=== PATIENT | female | born 1980 | race Caucasian/White ===

== ENCOUNTER 2018-01-07 07:22 | Outpatient (CLI) | payer OTHER ==
[2018-01-07] MEDS ORDERED: Iopamidol 370 76% 100 ML VIAL ONE (09:00)
--- NOTE | 2018-01-07 09:06 | CT ---
CT ABDOMEN AND PELVIS WITH IV CONTRAST: INDICATIONS: Left lower quadrant abdominal pain since 2007 that has increased to where the patient is having persi stent pain all the time. The patient has a history of surgical ablation. COMPARISON: None. CONTRAST: Isovue-370 100 mL. FINDINGS: Calcified granuloma in the left lower lobe. There is a 1.8 cm aneurysm involving the splenic artery on image 18 of series 2. The spleen measures 10.7 cm. There is a tiny hepatic hypodensity within the medial left hepatic lobe, suspicious for a small cyst. The pancreas, adrenal glands, and kidneys appear within normal limits. There is a fibroid uterus. The bladder, rectum, and perirectal soft tissues are unremarkable appeari ng. There is a suspected 1.6 cm involuting cyst within the left adnexa. There is a mild amount of retained stool within the colon. There is a normal appendix in the right l ower quadrant of the abdomen. No acute osseous abnormality is evident. IMPRESSION: 1. 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 Would recommend a nonemergent vascular surgery consultation. 2. Fibroid uterus. 3. Mild amount of retained stool. 4. Left hepatic lobe cyst. 5. Suspected involuting cyst within the left adnexa. POS: [facility]
== END 2018-01-07 07:23 | disposition home or self-care (01) ==
LOC: SCSCT 07:22
PROVIDERS: ATTEND Internal Medicine
DX: K58.1 Irritable bowel syndrome with constipation (principal); D25.9 Leiomyoma of uterus, unspecified; K76.89 Other specified diseases of liver; I72.8 Aneurysm of other specified arteries
CPT/HCPCS: 74177

== ENCOUNTER 2018-01-19 17:17 | Outpatient (CLI) | payer OTHER ==
[2018-01-19 18:09] LABS: Hemoglobin 13.9 g/dL (12.0-16.0); Mean Corpuscular HGB CONC 33.1 g/dL (32.0-36.0); Mean Corpuscular Hemoglobin 30.7 pg (27.0-31.0); Mean Corpuscular Volume 92.8 fl (81.0-99.0); Mean Platelet Volume 7.8 fL (7.4-10.4); Platelet Count 387 thou/uL (130-400); RBC Distribution Width 11.1 % (11.5-14.5); Red Blood Cell (RBC) Count 4.53 mill/uL (4.20-5.40); White Blood Cell (WBC) Count 8.3 thou/uL (4.8-10.8)
[2018-01-19 18:29] LABS: Anion Gap 6 mmol/L (10-20); BUN (Urea Nitrogen) 13 mg/dL (7.0-18.7); Calc. Creatinine Clearance 0 mL/min (70-130); Calcium 9.6 mg/dL (7.8-10.44); Carbon Dioxide 31 mmol/L (22-29); Chloride 102 mmol/L (98-107); Estimated GFR-MDRD 83; Glucose 87 mg/dL (70-105); Potassium 3.1 mmol/L (3.5-5.1); Sodium 136 mmol/L (136-145)
== END 2018-01-19 17:18 | disposition home or self-care (01) ==
LOC: LABBT 17:17
PROVIDERS: ATTEND Thoracic Surgery (Cardiothoracic Vascular Surgery)
DX: Z01.812 Encounter for preprocedural laboratory examination (principal); I72.8 Aneurysm of other specified arteries
CPT/HCPCS: 80048; 85027

== ENCOUNTER 2018-01-20 08:52 | Day surgery (SDC) | payer OTHER ==
[2018-01-19 17:29] VITALS: BMI 22.8
[2018-01-20] MEDS ORDERED: Iopamidol 370 76% 50 ML VIAL FS ONE (10:26)
[2018-01-20] MEDS ORDERED: Lidocaine 1% (PF) 30 ML VIAL ONE (10:36)
[2018-01-20] MEDS ORDERED: Fentanyl 100 MCG/2 ML VIAL ONE ×2 (10:49→12:47)
[2018-01-20] MEDS ORDERED: Midazolam HCl 2 mg/2 ml Vial ONE (10:49)
[2018-01-20] MEDS ORDERED: Heparin 10,000 UNITS/1 ML VIAL ONE (12:23)
--- NOTE | 2018-01-20 13:03 | OP ---
DATE OF PROCEDURE: 01/20/2018 PREOPERATIVE DIAGNOSIS: Splenic artery aneurysm. POSTOPERATIVE DIAGNOSIS: Splenic artery aneurysm. PROCEDURES: 1. Abdominal aortogram. 2. Celiac artery angiogram. 3. Splenic artery angiogram. 4. US guided vascular access SURGEON: Rayo Paez M.D. ANESTHESIA: 1% lidocaine for local and 2 mg Versed/100 mcg fentanyl for IV sedation. TOTAL CONTRAST: 41 mL. TOTAL FLUOROSCOPY TIME: 29.5 minutes. PROCEDURE IN DETAIL: After consent was obtained, the patient was brought to the [employer] Integration Specialist, placed in supine position on the laboratory associate table. Appropriate anesthetic monitoring was placed. IV sedation was begun. Groins were prepped and draped in usual sterile fashion. Using ultrasound guidance, right femoral artery was accessed and a micropuncture sheath placed. This was exchanged for a 5-Mauritanian sheath. Abdominal aortogram was performed through a Contra catheter positioned in the abdominal aorta at the level of the diaphragm. The celiac artery was localized. A lateral projection was performed to localize the celiac artery and lateral projection. Multiple guidewires, guiding catheters, and catheters were used to access and image the celiac, splenic, and hepatic arteries. Again, multiple guidewires and catheters were used to attempt to access the splenic artery. Multiple angiograms and multiple views were performed with no success and actually isolating the splenic artery for guidewire and catheter placement. At this point, I elected to terminate the procedure. Guidwires and catheters were removed. Sheath was removed and manual pressure was held for hemostasis. She will be discharged later today and will be referred out for a splenic artery embolization. KONSTANTIN
[2018-01-20] MEDS ORDERED: Fentanyl 100 MCG/2 ML VIAL SLOW IVP PRN (13:54)
[2018-01-20] MEDS ORDERED: Ondansetron HCl/PF 4 MG/2 ML Vial ONE ×2 (15:34→15:51)
[2018-01-20] MEDS ORDERED: Lorazepam 2 MG/ML VIAL ONE (15:34)
[2018-01-20] MEDS ORDERED: Lorazepam 2 MG/ML VIAL SLOW IVP PRN (15:43)
[2018-01-20] MEDS ORDERED: Ondansetron HCl/PF 4 MG/2 ML Vial SLOW IVP PRN (15:44)
[2018-01-20] MEDS ORDERED: Sodium Chloride 0.9% 10 ML ONE (16:51)
== END 2018-01-20 18:16 | disposition home or self-care (01) ==
LOC: CCL 08:52
PROVIDERS: ATTEND Thoracic Surgery (Cardiothoracic Vascular Surgery)
PROC: B40DYZZ Plain Radiography of Aorta and Bilateral Lower Extremity Arteries using Other Contrast (ICD-10-PCS; principal; 2018-01-20)
DX: I72.8 Aneurysm of other specified arteries (principal); G43.909 Migraine, unspecified, not intractable, without status migrainosus; I10 Essential (primary) hypertension; I47.1 Supraventricular tachycardia; F41.9 Anxiety disorder, unspecified; I34.1 Nonrheumatic mitral (valve) prolapse; Z79.899 Other long term (current) drug therapy; Z88.8 Allergy status to other drugs, medicaments and biological substances
CPT/HCPCS: 36245; 75625; 75726; 76942; 96374; 99152; 99153; A4216; C1725; C1769; C1887; J1644; J2001; J2060; J2250; J2405; J3010

== ENCOUNTER 2018-01-24 16:28 | Emergency (ER) | payer OTHER ==
[2018-01-24 16:54] LABS: #Basophils 0.1 thou/uL (0.0-0.2); #Eosinphils 0.7 thou/uL (0.0-0.7); #Lymphocytes 1.5 thou/uL (1.20-3.40); #Monocytes 0.7 thou/uL (0.11-0.59); #Neutrophils 6.2 thou/uL (1.40-6.50); %Basophils 1.1 % (0.0-1.0); %Eosinophils 8.1 % (0.0-10.0); %Neutrophils 66.8 % (42.0-75.0); Hemoglobin 10.7 g/dL (12.0-16.0); Mean Corpuscular HGB CONC 34.4 g/dL (32.0-36.0); Mean Corpuscular Hemoglobin 29.7 pg (27.0-31.0); Mean Corpuscular Volume 86.3 fl (81.0-99.0); Platelet Count 312 thou/uL (130-400); RBC Distribution Width 10.8 % (11.5-14.5); White Blood Cell (WBC) Count 9.2 thou/uL (4.8-10.8)
[2018-01-24 17:08] LABS: ALT (SGPT) 12 U/L (8-55); AST (SGOT) 13 U/L (5-34); Albumin 3.9 g/dL (3.5-5.0); Alkaline Phosphatase 52 U/L (40-150); Anion Gap 11 mmol/L (10-20); BUN (Urea Nitrogen) 14 mg/dL (7.0-18.7); Bilirubin, Total 0.6 mg/dL (0.2-1.2); Calc. Creatinine Clearance 0 mL/min (70-130); Calcium 8.9 mg/dL (7.8-10.44); Carbon Dioxide 27 mmol/L (22-29); Chloride 105 mmol/L (98-107); Estimated GFR-MDRD Greater than 90; Globulin 2.8 g/dL (2.4-3.5); Glucose 85 mg/dL (70-105); Lipase 43 U/L (8-78); Potassium 3.7 mmol/L (3.5-5.1); Protein, Total 6.7 g/dL (6.0-8.3); Sodium 139 mmol/L (136-145)
--- NOTE | 2018-02-18 14:34 | EKG ---
Test Reason : Blood Pressure : / mmHG Vent. Rate : 081 BPM Atrial Rate : 081 BPM P-R Int : 148 ms QRS Dur : 122 ms QT Int : 424 ms P-R-T Axes : 046 040 020 degrees QTc Int : 492 ms Normal sinus rhythm RSR' or QR pattern in V1 suggests right ventricular conduction delay Cannot rule out Anterior infarct , age undetermined Nonspecific T wave abnormality Abnormal ECG Confirmed by TWYLA WATSON, FRIDA Goyal ([id number]), department editor MARIBEL CARPIO ([id number]) on 02/18/2018 2:34:03 PM Referred By: Confirmed By:FRIDA WAKEFIELD MD
== END 2018-01-24 18:38 | disposition home or self-care (01) ==
LOC: SCSER 16:28
DX: R53.1 Weakness (principal); G43.909 Migraine, unspecified, not intractable, without status migrainosus; F32.9 Major depressive disorder, single episode, unspecified; F41.9 Anxiety disorder, unspecified; Z79.899 Other long term (current) drug therapy
CPT/HCPCS: 80053; 83690; 85025; 93005; 96360

== ENCOUNTER 2018-01-25 19:58 | Observation (INO) | payer OTHER ==
[2018-01-25 20:51] LABS: #Eosinphils 0.3 thou/uL (0.0-0.7); #Lymphocytes 1.1 thou/uL (1.20-3.40); #Monocytes 0.2 thou/uL (0.11-0.59); %Basophils 0.3 % (0.0-1.0); %Eosinophils 4.4 % (0.0-10.0); %Lymphocytes 14.5 % (21.0-51.0); %Monocytes 3.1 % (0.0-10.0); %Neutrophils 77.7 % (42.0-75.0); Hemoglobin 11.2 g/dL (12.0-16.0); Mean Corpuscular HGB CONC 34.5 g/dL (32.0-36.0); Mean Corpuscular Hemoglobin 31.1 pg (27.0-31.0); Mean Corpuscular Volume 90.2 fl (81.0-99.0); Mean Platelet Volume 7.1 fL (7.4-10.4); Platelet Count 339 thou/uL (130-400); RBC Distribution Width 11.2 % (11.5-14.5); Red Blood Cell (RBC) Count 3.61 mill/uL (4.20-5.40); White Blood Cell (WBC) Count 7.7 thou/uL (4.8-10.8)
[2018-01-25 21:10] LABS: Anion Gap 10 mmol/L (10-20); BUN (Urea Nitrogen) 8 mg/dL (7.0-18.7); Calc. Creatinine Clearance 0 mL/min (70-130); Calcium 9.2 mg/dL (7.8-10.44); Carbon Dioxide 25 mmol/L (22-29); Chloride 104 mmol/L (98-107); Estimated GFR-MDRD 90; Glucose 88 mg/dL (70-105); Potassium 3.4 mmol/L (3.5-5.1); Sodium 136 mmol/L (136-145)
[2018-01-25] MEDS ORDERED: Morphine 4 MG/ML VIAL ONE (21:54)
[2018-01-25] MEDS ORDERED: Ketorolac Tromethamine 30 MG/ML VIAL ONE ×2 (21:59→22:00)
[2018-01-25] MEDS ORDERED: Ondansetron HCl/PF 4 MG/2 ML Vial ONE (22:00)
[2018-01-25] MEDS ORDERED: Ondansetron ODT 4 MG TAB PO PRN (22:26)
[2018-01-25] MEDS ORDERED: Dextrose 50% Abboject 50 ML SYRINGE SLOW IVP PRN (22:26)
[2018-01-25] MEDS ORDERED: Dextrose 5% in Water 1,000 ML IV PRN (22:26)
[2018-01-25] MEDS ORDERED: Ondansetron HCl/PF 4 MG/2 ML Vial IVP PRN (22:26)
[2018-01-25 22:39] VITALS: BMI 20.1
[2018-01-25] MEDS ORDERED: Morphine 4 MG/ML VIAL SLOW IVP PRN ×2 (22:45)
[2018-01-25] MEDS: D5 1/2 NS w/20 mEq KCL 1,000 ML IV SCH (22:55)
[2018-01-25] MEDS: Acetaminophen 1,000 MG in Premix Bag 1 BAG IVPB PRN (22:55)
[2018-01-25] MEDS ORDERED: diphenhydrAMINE 50 MG/ML VIAL ONE (23:29)
[2018-01-26] MEDS ORDERED: diphenhydrAMINE 25 MG CAP PO PRN (00:22)
--- NOTE | 2018-01-26 02:27 | HP ---
CHIEF COMPLAINT: Pain in the right lower quadrant. HISTORY OF PRESENT ILLNESS: This is a 37-year-old female who after prolonged GI workup was diagnosed with splenic artery aneurysm. She underwent attempted embolization of this by Dr. Rayo Paez on 01/21/2018. He was not able to embolize the aneurysm itself. She was doing fine until earlier today started to develop more severe pain in right lower quadrant. She denies significant hematoma or chago n in the right groin. This is not associated with nausea, vomiting, fever, chills, hurts to move her right leg. Seen in the emergency department where CT scan initial read brought up the concern for a ppendicitis or ruptured ovarian cyst. I discussed the CT scan with radiologist marina and given the history of instrumentation in the right groin. This could be ecchymosis related to that. Pain is d escribed as 08/10 sharp, just in the right lower quadrant. PAST MEDICAL HISTORY: Includes chronic migraines, hypertension, mitral valve prolapse, anxiety. PAST SURGICAL HISTORY: Mitral valve ablation, right femoral access attempted embolization of splenic artery aneurysm. MEDICINES: Linzess, trazodone, control, hydrochlorothiazide. ALLERGIES: PROCHLORPERAZINE and COMPAZINE. SOCIAL HISTORY: No smoking, no alcohol, no other drugs. REVIEW OF SYSTEMS: Ten system review of systems otherwise negative unless described above. PHYSICAL EXAMINATION: VITAL SIGNS: Pulse 103, blood pressure is 120/80. She is afebrile. HEENT: Sclerae are anicteric. Oropharynx is clear. NECK: No lymphadenopathy. CHEST: Clear. HEART: Regular rate and rhythm. ABDOMEN: Soft, it is tender right lower quadrant, localized guarding, without rebound. EXTREMITIES: No ischemia to extremities. LABORATORY DATA: White cell count is 7, hemoglobin 11, platelet count is 339. Sodium 136, potassium 3.4, creatinine 0.72. CT scan as above. ASSESSMENT: Right lower quadrant pain after attempted embolization via right femoral approach. Like ly this is small amount of retroperitoneal hemorrhage down and around the right adnexa and the cecum, it is hemodynamically stable. H and H stable. PLAN: Admit to observation. I do think this represents appendicitis; however, we will repeat her in fectious count in the morning. If pain worsens if she becomes febrile. If she develops increased WB C. We will plan for diagnostic laparoscopy.
[2018-01-26] MEDS: Ketorolac Tromethamine 30 MG/ML VIAL IVP PRN ×2 (04:33→19:53)
[2018-01-26 05:46] LABS: #Eosinphils 0.3 thou/uL (0.0-0.7); #Lymphocytes 0.2 thou/uL (1.20-3.40); #Monocytes 0.3 thou/uL (0.11-0.59); #Neutrophils 6.8 thou/uL (1.40-6.50); %Basophils 0.2 % (0.0-1.0); %Eosinophils 4.2 % (0.0-10.0); %Monocytes 4.5 % (0.0-10.0); %Neutrophils 89.1 % (42.0-75.0); Hemoglobin 10.6 g/dL (12.0-16.0); Mean Corpuscular HGB CONC 35.6 g/dL (32.0-36.0); Mean Corpuscular Hemoglobin 33.1 pg (27.0-31.0); Mean Corpuscular Volume 93.1 fl (81.0-99.0); Mean Platelet Volume 7.6 fL (7.4-10.4); Platelet Count 251 thou/uL (130-400); RBC Distribution Width 11.2 % (11.5-14.5); Red Blood Cell (RBC) Count 3.21 mill/uL (4.20-5.40); White Blood Cell (WBC) Count 7.6 thou/uL (4.8-10.8)
[2018-01-26 06:08] LABS: Anion Gap 7 mmol/L (10-20); BUN (Urea Nitrogen) 8 mg/dL (7.0-18.7); Calc. Creatinine Clearance 91 mL/min (70-130); Calcium 8.6 mg/dL (7.8-10.44); Carbon Dioxide 29 mmol/L (22-29); Chloride 104 mmol/L (98-107); Estimated GFR-MDRD 90; Glucose 110 mg/dL (70-105); Potassium 3.6 mmol/L (3.5-5.1); Sodium 136 mmol/L (136-145)
[2018-01-26] MEDS: Acetaminophen 1,000 MG in Premix Bag 1 BAG IVPB PRN (09:00)
[2018-01-26] MEDS: Famotidine 20 MG TAB PO SCH ×2 (09:00→19:58)
--- NOTE | 2018-01-26 10:48 | PRG ---
DATE OF SERVICE: 01/26/2018 SUBJECTIVE: Ms. Ramirez has slight improvement in her pain. She now has a migraine headache. Mult iple voids. PHYSICAL EXAMINATION: VITAL SIGNS: She is afebrile, pulse remains at 100, blood pressure 96/59. Again, afebrile. ABDOMEN: Soft. She is ribbon lap machine tender in the right lower quadrant with guarding. No significant tende rness in the other diffuse abdomen. Examination of the right groin reveals no significant ecchymoses or hematoma. EXTREMITIES: Well perfused without edema. LABORATORY DATA: White blood cell count is 7, hemoglobin 10.6, platelet count is 251, creatinine 0.7 2. ASSESSMENT: Right lower quadrant inflammatory change versus ecchymoses. Mild retroperitoneal hemorr chayito. Doubt appendicitis or infectious source given lack of fevers, normal white count. Discussed with Dr. Rayo Paez this morning who reviewed the CAT scan with me. This can all be exp lained by a small amount of retroperitoneal blood, likely old at this point, dissecting through the t issue planes and causing pain and is also likely explains her mild anemia. PLAN: The plan is supportive care, restart her home medications, advance her diet today. Can be dis charged home tomorrow if white blood cell count remains normal.
[2018-01-26] MEDS: D5 1/2 NS w/20 mEq KCL 1,000 ML IV SCH ×2 (11:45→23:58)
[2018-01-27] MEDS: Ketorolac Tromethamine 30 MG/ML VIAL IVP PRN (04:10)
[2018-01-27] MEDS ORDERED: Acetaminophen 1,000 MG in Premix Bag 1 BAG IVPB SCH (07:00)
[2018-01-27 07:54] LABS: #Eosinphils 0.5 thou/uL (0.0-0.7); #Lymphocytes 0.6 thou/uL (1.20-3.40); #Monocytes 0.3 thou/uL (0.11-0.59); #Neutrophils 2.3 thou/uL (1.40-6.50); %Basophils 0.6 % (0.0-1.0); %Eosinophils 14.4 % (0.0-10.0); %Monocytes 8.1 % (0.0-10.0); Hemoglobin 9.9 g/dL (12.0-16.0); Mean Corpuscular HGB CONC 34.3 g/dL (32.0-36.0); Mean Corpuscular Hemoglobin 31.4 pg (27.0-31.0); Mean Corpuscular Volume 91.6 fl (81.0-99.0); Mean Platelet Volume 7.8 fL (7.4-10.4); Platelet Count 220 thou/uL (130-400); RBC Distribution Width 11.2 % (11.5-14.5); Red Blood Cell (RBC) Count 3.15 mill/uL (4.20-5.40); White Blood Cell (WBC) Count 3.8 thou/uL (4.8-10.8)
[2018-01-27] MEDS: Famotidine 20 MG TAB PO SCH (08:22)
--- NOTE | 2018-01-27 10:02 | DIS ---
ADMIT DIAGNOSES: History of splenic artery aneurysm status post attempted embolization now with retr operitoneal stable ecchymoses/hemorrhage. DISCHARGE DIAGNOSIS: History of splenic artery aneurysm status post attempted embolization now with retroperitoneal stable ecchymoses/hemorrhage. PROCEDURES: None. CONDITION AT DISCHARGE: Improved. STAFF: Dr. Raghav Raymond. HOSPITAL COURSE: The patient was admitted with right lower quadrant pain. She just had attempted em bolization of splenic artery aneurysm. She had a normal white count. She was borderline tachycardic . Review of her films with the radiologist revealed that her stranding in the right lower quadrant coul d be mild stable hemorrhage causing her pain. She was admitted for observation. Repeat infectious c ount was normal. Her tachycardia improved. She had mild anemia likely secondary to this hemorrhage, but had been stable throughout the hospital course. On the day of discharge, she is doing well. He r pain is improved. She is discharged home. She was given a prescription for [place] and Zofran. She is set to follow up with the specialist in [place] tomorrow. If she is able to go, a copy of her scan was given to her.
[2018-01-27 11:52] VITALS: BP 108/77; TEMP 97.7
== END 2018-01-27 14:30 | disposition home or self-care (01) ==
LOC: ERS 19:58 → SJJU 22:18
PROVIDERS: ADMIT Surgery; ATTEND Surgery
DX: R10.31 Right lower quadrant pain (principal); I72.8 Aneurysm of other specified arteries; R58 Hemorrhage, not elsewhere classified; D64.9 Anemia, unspecified; G43.909 Migraine, unspecified, not intractable, without status migrainosus; I10 Essential (primary) hypertension; F41.9 Anxiety disorder, unspecified; I34.1 Nonrheumatic mitral (valve) prolapse; Z88.8 Allergy status to other drugs, medicaments and biological substances; Z79.899 Other long term (current) drug therapy; Z98.890 Other specified postprocedural states
CPT/HCPCS: 36415; 80048; 85025; 96365; 96366; 96374; 96375; 96376; G0378; J0131; J1200; J1885; J2270; J2405; Q0162

== ENCOUNTER 2018-03-14 13:56 | Emergency (ER) | payer BC ==
[2018-03-14 14:39] LABS: #Basophils 0.1 thou/uL (0.0-0.2); #Eosinphils 0.3 thou/uL (0.0-0.7); #Lymphocytes 1.8 thou/uL (1.20-3.40); #Monocytes 0.7 thou/uL (0.11-0.59); %Basophils 1.5 % (0.0-1.0); %Eosinophils 3.8 % (0.0-10.0); %Lymphocytes 22.8 % (21.0-51.0); %Monocytes 8.3 % (0.0-10.0); %Neutrophils 63.5 % (42.0-75.0); Hemoglobin 12.7 g/dL (12.0-16.0); Mean Corpuscular HGB CONC 33.8 g/dL (32.0-36.0); Mean Corpuscular Hemoglobin 29.5 pg (27.0-31.0); Mean Corpuscular Volume 87.2 fl (81.0-99.0); Mean Platelet Volume 7.2 fL (7.4-10.4); Platelet Count 355 thou/uL (130-400); RBC Distribution Width 11.1 % (11.5-14.5); White Blood Cell (WBC) Count 7.9 thou/uL (4.8-10.8)
[2018-03-14 14:41] LABS: Bilirubin Negative (Negative); Blood, Urine Trace (Negative); Clarity Cloudy (Clear); Glucose, Urine (Dipstick) Negative (Negative); Leukocyte Trace (Negative); Nitrite Negative (Negative); Protein, Urine (Dipstick) 30 mg/dL (Neg-Trace); pH, Urine 7.5 (5.0-9.0)
[2018-03-14 14:42] LABS: Pregnancy Test - Urine (BHCG) Negative (Negative); Pregu Control Background? CLEAR/WHITE (CLR/WHITE); Pregu Control Bar Appear? YES (CONTROL BAR)
[2018-03-14 14:48] LABS: Bacteria/HPF 2+ HPF (None Seen); Hyaline Casts/LPF 0-3 HYALINE CAST LPF (0-3 Hyaline)
[2018-03-14 14:54] LABS: ALT (SGPT) 12 U/L (8-55); AST (SGOT) 12 U/L (5-34); Albumin 4.3 g/dL (3.5-5.0); Alkaline Phosphatase 52 U/L (40-150); Anion Gap 13 mmol/L (10-20); BUN (Urea Nitrogen) 12 mg/dL (7.0-18.7); Bilirubin, Total 0.5 mg/dL (0.2-1.2); Calc. Creatinine Clearance 0 mL/min (70-130); Calcium 9.4 mg/dL (7.8-10.44); Carbon Dioxide 21 mmol/L (22-29); Chloride 109 mmol/L (98-107); Estimated GFR-MDRD 90; Globulin 2.9 g/dL (2.4-3.5); Glucose 89 mg/dL (70-105); Potassium 3.8 mmol/L (3.5-5.1); Protein, Total 7.2 g/dL (6.0-8.3); Sodium 139 mmol/L (136-145)
--- NOTE | 2018-03-14 16:31 | CT ---
ABDOMEN CT WITHOUT CONTRAST PELVIC CT WITHOUT CONTRAST: HISTORY: Abdominal pain. The patient jumped and slipped, hitting the corner of her desk. Left upper quadrant pain. History of splenic artery aneurysm. COMPARISON: 01/25/18. TECHNIQUE: Abdomen and pelvic CT are performed without IV or oral contrast. Coronal reformatted images are subm itted for interpretation. FINDINGS: ABDOMEN CT: Lung bases are clear. Calcified granuloma in the left lower lobe is noted. Heart size is normal. NO pericardial effusion. Limited evaluation of the solid organs due to the la ck of IV contrast. Grossly, no solid organ abnormality. No perihepatic or perisplenic fluid. Gallb ladder is unremarkable. No mesenteric mass, lymphadenopathy, free air, or free fluid. Limited evaluation of the alimentary canal due to the lack of oral contrast. No evidence of bowel ob struction. The ileocecal junction is normal. Scattered fecal material in a nondistended, nondilated colon. Normal-caliber appendix. Bilaterally, no evidence of obstructive uropathy. There is nonspecific fatty infiltration of the left colon mucosa, similar to the prior exam. There is evidence of coil mass in the left upper quadrant compatible with embolization of a previousl y identified splenic artery aneurysm. PELVIC CT: No mass, lymphadenopathy, free air, or significant free fluid. Uterus and adnexal structures are unr emarkable. No lytic or blastic lesions in the osseous structures. No evidence of fracture. IMPRESSION: No posttraumatic sequelae in the abdomen or pelvis. POS: [facility]
== END 2018-03-14 15:28 | disposition home or self-care (01) ==
LOC: SCSER 13:56
DX: S30.1XXA Contusion of abdominal wall, initial encounter (principal); S20.212A Contusion of left front wall of thorax, initial encounter; G43.909 Migraine, unspecified, not intractable, without status migrainosus; F32.9 Major depressive disorder, single episode, unspecified; F41.9 Anxiety disorder, unspecified; W22.03XA Walked into furniture, initial encounter; Y93.39 Activity, other involving climbing, rappelling and jumping off
CPT/HCPCS: 74176; 80053; 81003; 81015; 81025; 85025

== ENCOUNTER 2018-05-16 09:26 | Outpatient (CLI) | payer BC ==
--- NOTE | 2018-05-16 12:09 | MRI ---
MRI CERVICAL SPINE NONCONTRAST: History: Neck pain. Bilateral shoulder radiculopathy. FINDINGS: The spinal cord throughout the cervical levels has a normal appearance without evidence of compressio n, expansion, or abnormal signal. Vertebral body heights and alignment are maintained. Bone marrow si gnal within normal limits. The central canal and neural foramina are patent. IMPRESSION: Normal MRI appearance of the cervical spine. POS: [facility]
== END 2018-05-16 09:27 | disposition home or self-care (01) ==
LOC: MRI 09:26
PROVIDERS: ATTEND Anesthesiology Pain Medicine
DX: M47.812 Spondylosis without myelopathy or radiculopathy, cervical region (principal)
CPT/HCPCS: 72141

== ENCOUNTER → 2018-06-27 | Day surgery (SDC) | payer OTHER ==
[2018-06-24 11:51] VITALS: BMI 22.4
[~2018-06-27] MED LIST: Bupivacaine HCl 0.5%/Epinephrine 1:200,000/PF 30 ml Vial ONE; CEFAZOLIN/Water 2 GM/20 ML SYRINGE ONE; CeleCOXIB 100 MG CAP ONE; Famotidine/PF 20 mg/2ml Vial ONE; Fentanyl 100 MCG/2 ML VIAL ONE; Gabapentin 300 MG CAP ONE; HYDROcodone/Acetaminophen 5/325 mg Tablet ONE; Meperidine HCl/PF 25 MG/ML VIAL ONE; Metoprolol Tartrate 5 MG/5 ML VIAL ONE; Midazolam HCl 2 mg/2 ml Vial ONE
--- NOTE | 2018-06-27 18:19 | OP ---
DATE OF OPERATION: 06/27/2018 PREOPERATIVE DIAGNOSIS: Pelvic pain. POSTOPERATIVE DIAGNOSES: 1. Pelvic pain. 2. Pelvic adhesions and endometriosis. PROCEDURE PERFORMED: Robotic-assisted diagnostic laparoscopy, lysis of adhesions, peritoneal biopsie s and placement of AmnioFix. ANESTHESIA: General endotracheal. ATTENDING SURGEON: Gunjan Mandel M.D. BEAD FLIPPER: Stacey Lane D.O. ESTIMATED BLOOD LOSS: 20 mL INTRAVENOUS FLUIDS: 1600 mL crystalloid. URINE OUTPUT: 200 mL of clear urine. PATHOLOGY: 1. Left pelvic peritoneal window. 2. Right anterior pelvic sidewall adhesions. 3. Left uterosacral and posterior peritoneal biopsies. 4. Right posterior pelvic peritoneal and uterosacral biopsy. DRAINS: None. SPECIMENS: None. FINDINGS: Uterus sounded to 8 cm. Cervix is normal appearing. One Small fundal fibroid less than 1 cm. Additional fibroid of the lower posterior left uterus approximately 3 cm, uterus with mottling and paler appearance over the fundal portion, dense adhesions of the uterus to the anterior abdominal wall and right pelvic sidewall and bladder, no spillage of saline or damage to the bladder during ad hesiolysis on backfilling of the bladder with saline. Small red lesions on the peritoneum of the rig ht posterior pelvic sidewall overlying the ureter. Small black and red lesions on the left uterosacr al and posterior pelvic perineum. OPERATIVE TECHNIQUE: The patient was taken to the operating room where general anesthesia was obtain ed without difficulty. The patient was prepped and draped in a sterile fashion in the dorsal lithoto my position. A Melendrez catheter was placed in the bladder. The speculum was placed in the vagina. An terior lip of the cervix was grasped with single tooth tenaculum. The cervix was then dilated with H ank dilators and sounded to 8 cm. BEN manipulator was assembled with an 8 cm tip and this was inser mike to the uterine fundus, balloon was inflated. Speculum and tenaculum were removed out of the vagi na. Legs were placed in low lithotomy. Attention was turned to the abdomen. The umbilicus was infi ltrated with 0.5% Marcaine with epinephrine. A 10 mm skin incision was made in the umbilicus. The s ubcutaneous tissue was grasped with 2 Kochers and elevated and incised with the Salgado scissors and the underlying subcu and fascia were grasped again with the Kochers and incised with the Mayos until the fascia was incised and entry into the peritoneal cavity occurred. At that time, the 11 mm trocar wa s placed directly and confirmed placement with the robotic camera. The upper abdomen was surveyed. There were no adhesions in the upper abdomen, the liver appeared normal. The transverse colon was ex tremely dilated and distended in the left upper quadrant and the patient was taken of this for docume ntation as the patient also had left upper quadrant pain. There were no other abnormalities in the u pper quadrants of the abdomen noted on laparoscopy. The right and left lower quadrant 8 mm trocars w ere placed under direct visualization after infiltrating with 0.5% Marcaine with epinephrine. An 8 m m right upper quadrant port was placed for an ssn/ssbn assistant navigator under direct visualization after infiltrating with anesthetic. Steep Trendelenburg was obtained. The robot was then docked. Right robotic arm c ontained the monopolar scissors, left robotic arm contained a fenestrated bipolar and photo documenta tion was performed of all findings as listed above and traction was held down on the uterus and the e dge of the uterus and the peritoneum of the anterior abdominal wall was incised with the scissors on cautery achieving hemostasis with the fenestrated as needed. Once the mid portion of the uterus was met, the bladder was back filled with saline to note the limitations of the bladder and prevent bladd er injury. The bladder was then decompressed and continued incision of the adhesion of the uterus to the anterior abdominal wall. Once the lower uterine segment was met the peritoneum was ensured to h ave a clear window prior to incision. There were main dense adhesions in the mid portion but also to separate dense adhesions on the right side of the uterus to the pelvic sidewall that were also incis ed. There were filmy adhesions of top of the bladder to the lower uterine segment and these were dis sected with the pushing and spreading technique with the fenestrated and the incision of all clear fi lmy fibers and bladder was back filled once again and at that time, the remainder of the adhesiolysis , the bladder to the lower uterine segment was performed carefully undermining and ensuring a clear w indow with the fenestrated and then incising on top of the fenestrated with the scissors on cautery. Hemostasis was achieved with the monopolar scissors. This took a total of approximately 30 minutes. At that time, the uterus was sharply anteverted and the black and red lesions on the uterosacral an d left pelvic sidewall were noted. The upper aspect of the uterosacral peritoneum was grasped and el evated off the underlying structures. The ureter was noted at that time and the peritoneum was incis ed superficially and a large approximately 4 x 3 cm biopsy was taken of the uterosacral and left post erior pelvic peritoneum undermining with the scissors and pushing and spreading to dissect off the re troperitoneum from the peritoneum and incising with the scissors to completely dissect the peritoneum off of the underlying retroperitoneum. Hemostasis was achieved with the scissors on cautery and the ureter was noted to be deep to the peritoneum and was dissected off of the peritoneum in order to co mplete the biopsy. The red lesions on the right posterior pelvic sidewall were grasped. The ureter was noted at that time transperitoneally. The peritoneum was superficially incised around this area and pneumoperitoneum was allowed to dissect into the retroperitoneum and there was a large approximat suresh 4 x 3 cm peritoneal biopsy from right uterosacral ligament over to the pelvic sidewall taken agai n incising with the scissors on the periphery and dissecting off the retroperitoneum very superficial ly to ensure no injury to underlying structures occurred. The ureter was noted and this peritoneum w as directly overlying the ureter and the ureter was due to these structures and was dissected off of the peritoneum very carefully with the scissors and hemostasis was achieved with the scissors; nica r, there was no cautery performed near the ureter. These biopsies were sent for final pathology. Ir rigation was performed of the surgical sites and hemostasis was noted. The AmnioFix 7 x 6 cm sheet w as then cut into 3 separate sheets, two smaller sheets were placed on the right and left posterior pe ritoneal biopsy sites. A larger was placed over the anterior uterus where the lysis of adhesions was performed. The bladder was then backfilled and no spillage of saline was known from bladder defects and the bladder was then decompressed. The instruments were removed out of the abdomen and the robo t was undocked and pneumoperitoneum was released. The fascia of the camera port was closed with a 0 Vicryl in a [id number] fashion. The skin was closed with 4-0 Monocryl in subcuticular fashion a nd Dermabond was applied. The manipulator was removed out of the uterus and hemostasis was noted. T he Melendrez catheter was removed out of the bladder. The patient tolerated procedure well. Sponge, lap , needle counts were correct x2. The patient was taken to recovery in stable condition. Patient rec eived Ancef 2 grams prior to procedure.
== END ==
LOC: SDC 10:51
PROVIDERS: ATTEND Student in an Organized Health Care Education/Training Program
PROC: 0UB44ZX Excision of Uterine Supporting Structure, Percutaneous Endoscopic Approach, Diagnostic (ICD-10-PCS; principal; 2018-06-27)
DX: N80.8 Other endometriosis (principal); N73.6 Female pelvic peritoneal adhesions (postinfective); D25.9 Leiomyoma of uterus, unspecified; K59.00 Constipation, unspecified; F41.9 Anxiety disorder, unspecified; F32.9 Major depressive disorder, single episode, unspecified; G43.909 Migraine, unspecified, not intractable, without status migrainosus; Z79.899 Other long term (current) drug therapy; Z88.8 Allergy status to other drugs, medicaments and biological substances; Z91.041 Radiographic dye allergy status
CPT/HCPCS: 51798; 88305; 96374; 96375; J0131; J0670; J2175; J2250; J3010; S0028

== ENCOUNTER 2019-03-26 04:10 | Emergency (ER) | payer OTHER ==
[2019-03-26] MEDS ORDERED: Acetaminophen 500 MG TAB ONE (04:21)
[2019-03-26] MEDS ORDERED: diphenhydrAMINE 50 MG/ML VIAL ONE (04:21)
[2019-03-26] MEDS ORDERED: Ketorolac Tromethamine 30 MG/ML VIAL ONE (04:28)
== END 2019-03-26 05:38 | disposition home or self-care (01) ==
LOC: SCSER 04:10
DX: R51 Headache (principal); I38 Endocarditis, valve unspecified; F41.9 Anxiety disorder, unspecified; F32.9 Major depressive disorder, single episode, unspecified; Z79.899 Other long term (current) drug therapy
CPT/HCPCS: 96361; 96374; 96375; J1200; J1885

== ENCOUNTER 2019-03-28 22:38 | Emergency (ER) | payer OTHER ==
[2019-03-28] MEDS ORDERED: diphenhydrAMINE 50 MG/ML VIAL ONE (23:18)
[2019-03-28] MEDS ORDERED: Acetaminophen 500 MG TAB ONE (23:18)
[2019-03-28] MEDS ORDERED: Ketorolac Tromethamine 30 MG/ML VIAL ONE (23:29)
== END 2019-03-29 00:30 | disposition home or self-care (01) ==
LOC: SCSER 22:38
DX: R51 Headache (principal); F32.9 Major depressive disorder, single episode, unspecified; F41.9 Anxiety disorder, unspecified; Z79.899 Other long term (current) drug therapy
CPT/HCPCS: 96361; 96374; 96375; J1200; J1885

== ENCOUNTER 2019-05-09 09:12 | Outpatient (CLI) | payer OTHER ==
--- NOTE | 2019-05-09 10:59 | MRI ---
MRI BRAIN WITH AND WITHOUT CONTRAST: DATE: 05/09/19 HISTORY: 38-year-old female with ICD-10: G43.019, migraine without aura, intractable, without status migraino jaleesa. Tremors, muscle weakness, and blurry vision. TECHNIQUE: Multiple sequences obtained in axial, sagittal, and coronal planes; pre and post IV injection of gado linium-based contrast agent: 12 mL MultiHance. FINDINGS: The ventricles are normal in size and configuration. There is no major intraaxial signal abnormality , restricted diffusion, abnormal intraaxial enhancement, mass, midline shift or any other mass effect , recent intraaxial hemorrhage, or extraaxial fluid collection. IMPRESSION: Normal. jn[] POS: [facility]
== END 2019-05-09 09:13 | disposition home or self-care (01) ==
LOC: SCSMRI 09:12
PROVIDERS: ATTEND Psychiatry & Neurology Neurology
DX: G43.019 Migraine without aura, intractable, without status migrainosus (principal)
CPT/HCPCS: 70553

== ENCOUNTER 2019-09-10 17:56 | Observation (INO) | payer OTHER ==
[2019-09-10 18:23] VITALS: BMI 25.6
[2019-09-10] MEDS ORDERED: Ketorolac Tromethamine 30 MG/ML VIAL IVP PRN (19:15)
[2019-09-10] MEDS ORDERED: Dextrose 5 % And 0.9 % NaCl 1,000 ML IV SCH (19:30)
[2019-09-10] MEDS ORDERED: Morphine 2 MG/ML SYRINGE SLOW IVP SCH (23:45)
--- NOTE | 2019-09-11 00:35 | PDOC.FPRHP ---
- History of Present Illness Chief Complaint: Headache History of Present Illness: Patient is a 39 yo female who presents with headache that has been present and constant since (09/07/19). Headache has been accompanied by increased sensitivity to light, smell, and noise. This headache is similar to ones she has had in the past. She has tried taking home triptan but made headache worse. Also tried ketorolac and benadryl without relief. Patient additionally complains of intermittent nausea & vomiting, has body-wide achyness, and blurry vision. - Allergies/Adverse Reactions Allergies Allergy/AdvReac Type Severity Reaction Status Date / Time prochlorperazine Allergy Severe Rash Verified 09/10/19 18:29 chlorpromazine Allergy Verified 09/10/19 18:29 [From Thorazine] fentanyl Allergy Verified 09/10/19 18:29 Iodinated Contrast Media Allergy Anaphylaxis Verified 09/10/19 18:29 [Iodinated Contrast- Oral and IV Dye] metoclopramide [From Reglan] Allergy Verified 09/10/19 18:29 sumatriptan [From Imitrex] Allergy MAY HAVE Verified 09/10/19 18:29 CAUSED SEIZURE suture Allergy blisters Verified 09/10/19 18:29 - Home Medications Medication Instructions Recorded Confirmed Type DULoxetine HCl 30 mg PO DAILY 01/19/18 09/10/19 History FLUoxetine HCl [Fluoxetine HCl] 80 mg PO DAILY 01/19/18 09/10/19 History Hydrochlorothiazide 12.5 mg PO ASDIR 01/19/18 09/10/19 History Ketorolac Tromethamine [Toradol] 10 mg PO Q6HR PRN 01/19/18 09/10/19 History traZODone HCl [Trazodone HCl] 75 mg PO HS 01/19/18 09/10/19 History Eletriptan HBr 0.25 tab PO BID PRN 06/24/18 09/10/19 History - History PMHx: Endometriosis, Migraines, Long QT syndrome, Meniere's disease, Anxiety, Depression, mitral valve prolapse PSHx: x1, laparascopy for endometriosis, heart ablation for atrial tachycardia, splenic artery aneurysm repair FHx: mom with brain cancer, sister with breast cancer & lupus, dad's side female relatives with breast cancer Social: denies tobacco or EtOH use - Review of Systems General: reports: fatigue. denies: fever/chills, weight/appetite/sleep changes Eyes: reports: vision changes ENT: denies: nasal congestion Respiratory: denies: cough, congestion, shortness of breath Cardiovascular: denies: chest pain, palpitation, edema Gastrointestinal: reports: nausea, vomiting. denies: diarrhea, constipation, abdominal pain Genitourinary: denies: dysuria Skin: denies: rashes, lesions Musculoskeletal: reports: pain. denies: swelling Neurological: denies: numbness, syncope, weakness - Vital signs BP: 139/86 HR: 95 RR: 20 Tmax: 97.6F Pox: 100% on RA Wt: 67 kg - Physical Exam Constitutional: NAD, awake, alert and oriented, well developed HEENT: normocephalic and atraumatic, EOMI, conjunctiva clear, grossly normal vision, grossly normal hearing, MMM -HEENT: horizontal nystagmus to left Neck: supple Heart: RRR, normal S1/S2, no murmurs/rubs/gallops, pulses present, no edema Lungs: CTAB, no respiratory distress, good air movement, no rales/rhonchi, no wheezing Abdomen: soft, non-tender, bowel sounds present Musculoskeletal: normal structure, normal tone Neurological: no focal deficit, normal sensation Skin: no rash/lesions, good turgor Heme/Lymphatic: no unusual bruising or bleeding Psychiatric: normal mood and affect, intact recent and remote memory FMR H&P: Results - Labs Result Diagrams: 09/11/19 05:03 09/11/19 05:03 FMR H&P: A/P - Problem List (1) Intractable headache Current Visit: Yes Status: Acute Code(s): R51 - HEADACHE Qualifiers: Headache type: unspecified Headache chronicity pattern: acute headache Qualified Code(s): R51 - Headache - Plan Patient is a 39 yo female with headache is admitted for intractable migraine #Intractable Migraine -has tried multiple meds on headache protocol with either no relief or patient has reported allergy -Consult neurology-Marlo, appreciate recs -CT head at outside ED, normal -Morphine 2 mg prn #Anxiety, Depression -continue home meds #Long QT Syndrome -continue Home meds PPx: none Diet: regular Code: Full Dispo: Stable, admitted to observation on telemetry. Will attempt pain control for headache. Anticipate LOS < 48 hrs. FMR H&P: Upper Level - Pertinent history 39 yo F here with complaint of migraine headache. She has a long history of similar headaches that are difficult to control. She takes a home triptan with mixed results. Today they have not helped. She also frequently takes Benadryl and toradol, which have also not helped. She notes that her current headache is similar to those in the past. She has associated photphobia and n/v. She denies visual changes or peripheral nervous symptoms. She had a head CT in an outside ER which was normal, though the read is not immediately available. Due to many medication reactions and long QT syndrome, she cannot take most meds commonly given for migraine. She also cannot have iodine contrast. She has a hx of splenic artery and SMA aneurism. She has had an MRA brain in the past which was apparently normal. PMHx Migraine Long QT syndrome MDD/Anxiety HTN Hx of splenic aa and SMA aneurism s/p coil and embolization Surgical hx C section Arterial coiling and embolization Denies smoking, etoh, or drugs FHx Maternal glioblastoma - Pertinent findings See corporate intern note for full ROS, PE, vitals, and labs ROS General denies fever or chills CV Denies CP, palpitation, or peripheral edema Resp Denies SOB or cough GI Complains of n/v. Denies abdominal pain denies increased frequency or dysuria Neuro Complains of headache and photophobia. Denies numbness or weakness PE General A&O x4, NAD HEENT NCAT CV RRR, no murmur Resp CTA, no respiratory distress Abd non tender, no distension, normal BS Extremities no edema, equal pedal pulses Neuro no focal deficits, CN II-XII intact - Plan Date/Time: 09/11/19 0035 IMateo DO, have evaluated this patient and agree with findings/plan as outlined by corporate intern resident. Pertinent changes/additions are listed here. 1.Intractable Migraine -Pt has had every med on headache protocol that she can tolerate without improvement. Will consult neurology for further management. -While it is possible that there is vascular or neoplastic source of her headaches, all previous imaging has been normal. Will review outside records. -For now will attempt to control with Morphine. 2.MDD - continue home meds 3.HTN -Home meds PPx SCD Diet HH Code Full Addendum - Attending - Attending Attestation Date/Time: 09/11/19 4214 I personally evaluated the patient and discussed the management with the team on 09/10. I agree with the History, Examination, Assessment and Plan documented above with any addition or exceptions noted below. Unfortunately has c/i to virtually every medication except ones she has taken. Will hold off on alternative triptan to consider DHE pending Dr. Sellers's eval.
[2019-09-11] MEDS: Morphine 2 MG/ML SYRINGE SLOW IVP PRN ×3 (03:31→11:54)
[2019-09-11 05:25] LABS: #Lymphocytes 1.3 thou/uL (1.20-3.40); #Monocytes 0.8 thou/uL (0.11-0.59); #Neutrophils 8.2 thou/uL (1.40-6.50); %Basophils 0.1 % (0.0-1.0); %Eosinophils 0.1 % (0.0-10.0); %Lymphocytes 12.2 % (21.0-51.0); %Monocytes 8.1 % (0.0-10.0); %Neutrophils 79.5 % (42.0-75.0); Mean Corpuscular HGB CONC 34.2 g/dL (32.0-36.0); Mean Corpuscular Hemoglobin 31.2 pg (27.0-31.0); Mean Corpuscular Volume 91.4 fL (78.0-98.0); Mean Platelet Volume 7.8 fL (7.4-10.4); Platelet Count 365 thou/uL (130-400); RBC Distribution Width 11.4 % (11.5-14.5); Red Blood Cell (RBC) Count 3.83 mill/uL (4.20-5.40); White Blood Cell (WBC) Count 10.3 thou/uL (4.8-10.8)
--- NOTE | 2019-09-11 05:45 | PDOC.FM ---
- Subjective Subjective: Pt states she stopped taking her combined hormonal therapy for endometriosis on and has had an intractable BEAL since. States the BEAL is much better this morning, relieved from the morphine. Present behind the right eye, radiating to the back of R head. Denies current N/V. + photophobia. - Objective MAR Reviewed: Yes Vital Signs & Weight: Vital Signs (12 hours) Temp Pulse Resp BP BP Pulse Ox 09/11/19 03:07 98.2 F 90 16 113/63 97 09/10/19 23:47 98.2 F 95 16 123/69 97 09/10/19 20:00 97.9 F 85 16 163/88 H 99 09/10/19 18:11 97.6 F 95 20 139/86 100 Weight Weight 67.631 kg I&O: 09/09/19 09/10/19 09/11/19 06:59 06:59 06:59 Intake Total 540 Balance 540 Result Diagrams: 09/11/19 05:03 09/11/19 05:03 Phys Exam - Physical Examination Constitutional: NAD HEENT: moist MMs, sclera anicteric Neck: no nodes, no JVD, supple, full ROM Respiratory: no wheezing, no rales, no rhonchi, clear to auscultation bilateral Cardiovascular: RRR, no significant murmur, no rub Gastrointestinal: soft, non-tender, no distention, positive bowel sounds Musculoskeletal: no edema, pulses present Neurological: non-focal, normal sensation, moves all 4 limbs Psychiatric: A&O x 3 Skin: no rash, normal turgor, cap refill <2 seconds Dx/Plan (1) Intractable headache Code(s): R51 - HEADACHE Status: Acute Qualifiers: Headache type: unspecified Headache chronicity pattern: acute headache Qualified Code(s): R51 - Headache (2) MDD (major depressive disorder) Code(s): F32.9 - MAJOR DEPRESSIVE DISORDER, SINGLE EPISODE, UNSPECIFIED Status : Chronic (3) HTN (hypertension) Code(s): I10 - ESSENTIAL (PRIMARY) HYPERTENSION Status: Acute - Plan Plan: 1.Intractable Migraine -Pt has had every med on headache protocol that she can tolerate without improvement. Will consult neurology for further management. Appreciate recommendations. -While it is possible that there is vascular or neoplastic source of her headaches, all previous imaging has been normal. Will review outside records. -For now will attempt to control with Morphine. 2.MDD - continue home meds 3.HTN -Home meds 4.Long QT Syndrome -continue Home meds PPx SCD Diet HH Code Full Dispo: stable, neurology consult and BEAL management. Addendum - Attending - Attending Attestation Date/Time: 09/11/19 9314 I personally evaluated the patient and discussed the management with Dr. Black. I agree with the History, Examination, Assessment and Plan documented above with any addition or exceptions noted below. Patient here for intractable migraine. She has been on multiple medications that do not work per patient. We are consulting neuro per PCP request. Await their input and hopeful discharge afterwards. EKG to evaluate her QT interval.
[2019-09-11 05:47] LABS: ALT (SGPT) 11 U/L (8-55); AST (SGOT) 9 U/L (5-34); Albumin 3.4 g/dL (3.5-5.0); Alkaline Phosphatase 46 U/L (40-110); Anion Gap 9 mmol/L (10-20); BUN (Urea Nitrogen) 8 mg/dL (7.0-18.7); Bilirubin, Total 0.3 mg/dL (0.2-1.2); Calc. Creatinine Clearance 111 mL/min (70-130); Calcium 8.7 mg/dL (7.8-10.44); Carbon Dioxide 22 mmol/L (22-29); Chloride 110 mmol/L (98-107); Estimated GFR-MDRD Greater than 90; Globulin 2.5 g/dL (2.4-3.5); Glucose 123 mg/dL (70-105); Protein, Total 5.9 g/dL (6.0-8.3); Sodium 137 mmol/L (136-145)
[2019-09-11] MEDS ORDERED: Morphine 2 MG/ML SYRINGE SLOW IVP PRN (16:31)
[2019-09-11] MEDS ORDERED: Ketorolac Tromethamine 10 MG TAB PO PRN (17:47)
[2019-09-11] MEDS ORDERED: ELETRIPTAN HBR PO PRN (17:47)
[2019-09-11] MEDS ORDERED: HYDROCHLOROTHIAZIDE 12.5 MG PO SCH (18:00)
[2019-09-11] MEDS: diphenhydrAMINE 50 MG/ML VIAL IVP PRN (18:11)
[2019-09-11] MEDS: Dihydroergotamine Mesylate 1 MG/ML AMP SLOW IVP PRN (18:39)
[2019-09-11] MEDS ORDERED: Hydrochlorothiazide 25 MG TAB PO PRN (19:58)
[2019-09-11] MEDS: Naproxen 500 MG TAB PO SCH (20:31)
[2019-09-11] MEDS ORDERED: traZODone HCl 50 MG TAB PO SCH (21:00)
[2019-09-11] MEDS ORDERED: Gabapentin 300 MG CAP PO SCH (21:00)
--- NOTE | 2019-09-11 23:26 | CON ---
DATE OF CONSULTATION: 09/11/2019 CONSULTING PHYSICIAN: Hospitalist Service. IMPRESSION: Status migrainosus. PLAN: Benadryl 25 mg IV push followed by DHE 0.5 mg IV push q.6 hours as needed for migraine. HISTORY OF PRESENT ILLNESS: Ms. Ramirez is a 39-year-old female with a history of migraine since childhood. She stopped hormone therapy for her endometriosis. Upon discontinuation, she developed a migraine nearly two weeks ago. She has tried Relpax, Toradol, Benadryl, and other qllw-ehd-tysnbsl medications without any success. She was given morphine in the emergency room, which did not help. She reportedly has a history of long QT syndrome. Her current QT is 408. She reports having reactions to most antiemetics. She otherwise had an MRI of the brain done in April, which was normal. All her lab work since admission was normal. Vital signs have been stable and she is afebrile. PAST HISTORY: Migraine, endometriosis. ALLERGIES: LISTED. SOCIAL HISTORY: She is . No illicit drug use. FAMILY HISTORY: Noncontributory. REVIEW OF SYSTEMS: Ten-system review of systems is otherwise negative. PHYSICAL EXAMINATION: GENERAL: She is a healthy-appearing middle-aged woman, in mild distress. VITAL SIGNS: Stable. She is afebrile. HEENT: Pupils are equal and reactive. Conjunctivae clear. NECK: Supple. NEUROLOGIC: She is alert and appropriate. Her speech is fluent and clear. There are no deficits present. No abnormal movements were seen. IMAGING STUDIES: EKG shows normal sinus rhythm with a rate of 80. SUMMARY: A 39-year-old woman with status migrainosus. Hopefully, she will respond to DHE. Job ID: [id number]
[2019-09-12] MEDS: Acetaminophen 325 MG TAB PO PRN ×2 (02:20→06:18)
--- NOTE | 2019-09-12 06:27 | PDOC.FM ---
- Subjective Subjective: Dr. Sellers started DHEA for pt's status migrainosus. Pt reports this immediately ceasing the headache. Pt reports having hallucinations overnight when she took the gabapentin. Pt denies BEAL this morning. - Objective MAR Reviewed: Yes Vital Signs & Weight: Vital Signs (12 hours) Temp Pulse Resp BP Pulse Ox 09/12/19 04:31 98 F 73 16 115/68 98 09/11/19 23:10 98.3 F 87 16 110/70 96 09/11/19 19:10 98.4 F 79 15 138/82 96 Weight Weight 67.631 kg I&O: 09/10/19 09/11/19 09/12/19 06:59 06:59 06:59 Intake Total 540 Balance 540 Result Diagrams: 09/11/19 05:03 09/11/19 05:03 Phys Exam - Physical Examination Constitutional: NAD HEENT: moist MMs, sclera anicteric Neck: no nodes, no JVD, supple, full ROM Respiratory: no wheezing, no rales, no rhonchi, clear to auscultation bilateral Cardiovascular: RRR, no significant murmur, no rub Gastrointestinal: soft, non-tender, no distention, positive bowel sounds Musculoskeletal: no edema, pulses present Neurological: non-focal, normal sensation, moves all 4 limbs Psychiatric: normal affect, A&O x 3 Skin: no rash, normal turgor, cap refill <2 seconds Dx/Plan (1) Intractable headache Code(s): R51 - HEADACHE Status: Acute Qualifiers: Headache type: unspecified Headache chronicity pattern: acute headache Qualified Code(s): R51 - Headache (2) MDD (major depressive disorder) Code(s): F32.9 - MAJOR DEPRESSIVE DISORDER, SINGLE EPISODE, UNSPECIFIED Status : Chronic (3) HTN (hypertension) Code(s): I10 - ESSENTIAL (PRIMARY) HYPERTENSION Status: Acute - Plan Plan: 1.Intractable Migraine vs other headache -Pt has had every med on headache protocol that she can tolerate without improvement. Will consult neurology for further management. Appreciate recommendations. Started DHE and benydryl. - D/C'd morphine - Started Naproxen and gabapentin 300 mg QHS, as shown to help with TMJ dysfunction as source of headaches. Possible etiology of BEAL. Will monitor for improvement. 2. Status Migrainosus, improved. - DHE and benydryl started 09/11. - Miguelangelst consulted, thank you for recommendations 3.MDD - continue home meds fluoxetine and duloxetine 4.HTN -Home meds of HCTZ 5.Long QT Syndrome -continue Home meds - present on EKG. - Holding and not ordering any medications that exacerbate this. PPx SCD Diet HH Code Full Dispo: stable, neurology consult and BEAL management. D/c home today. Addendum - Attending - Attending Attestation Date/Time: 09/12/19 8020 I personally evaluated the patient and discussed the management with Dr. Black. I agree with the History, Examination, Assessment and Plan documented above with any addition or exceptions noted below. Patient migraine aborted with DHE. She is feeling well and will be discharged for outpatient neuro follow up on DHE.
[2019-09-12] MEDS ORDERED: DULoxetine 30 MG CAP PO SCH (09:00)
[2019-09-12] MEDS ORDERED: FLUoxetine HCl 20 MG CAP PO SCH (09:00)
[2019-09-12] MEDS: Naproxen 500 MG TAB PO SCH (09:02)
[2019-09-12] MEDS: diphenhydrAMINE 50 MG/ML VIAL IVP PRN (09:51)
[2019-09-12] MEDS: Dihydroergotamine Mesylate 1 MG/ML AMP SLOW IVP PRN (10:03)
[2019-09-12 11:56] VITALS: BP 134/85; TEMP 98.2
--- NOTE | 2019-09-12 14:10 | EKG ---
Test Reason : Blood Pressure : / mmHG Vent. Rate : 080 BPM Atrial Rate : 080 BPM P-R Int : 148 ms QRS Dur : 112 ms QT Int : 408 ms P-R-T Axes : 054 035 015 degrees QTc Int : 470 ms Normal sinus rhythm Incomplete right bundle branch block Borderline ECG When compared with ECG of 24-JAN-2018 16:49, No significant change was found Confirmed by DANY WATSON, SHola ([id number]) on 09/12/2019 2:10:22 PM Referred By: DC Thibodeaux Confirmed By:DR. Zoe SAENZ MD
--- NOTE | 2019-09-12 22:17 | DIS ---
DATE OF ADMISSION: 09/10/2019 DATE OF DISCHARGE: 09/12/2019 RESIDENT: Sharonda Black, DO DISCHARGE ATTENDING: David Rivera MD. CONSULTS: Neurology, Raf Sellers MD PROCEDURES PERFORMED: None. DIAGNOSES: 1. Intractable headache. 2. Status migrainosus. 3. Long QT syndrome. 4. Meniere disease. 5. Anxiety and depression. DISCHARGE MEDICATIONS: 1. DHE 1 mg IM subcu. Can repeat in next hour, max dose 3 mg a day; max dose 6 mg a week. 2. Naproxen. 3. Benadryl. I will follow this dictation later. Job ID: [id number]
--- NOTE | 2019-09-13 07:42 | DIS ---
DATE OF ADMISSION: 09/10/2019 DATE OF DISCHARGE: 09/12/2019 RESIDENT: Sharonda Black DO ADMITTING ATTENDING: Dr. Young. DISCHARGE ATTENDING: David Rivera MD CONSULTS: Neurology, Raf Sellers MD PROCEDURES PERFORMED: None. DIAGNOSES: 1. Intractable migraine. 2. Status migrainosus. 3. Major depressive disorder. 4. Meniere disease. 5. Long QT syndrome. DISCHARGE MEDICATIONS: 1. DHE 1 mg IM q.1 hour. Repeat in 1 hour if headache is still present. Maximum dosage is 3 mg a day. Max dosage in a week is 6 mg. 2. Duloxetine 30 mg p.o. daily. 3. Elitriptan 0.25 tab p.o. b.i.d. p.r.n. for headache. 4. Fluoxetine 80 mg p.o. daily. 5. Hydrochlorothiazide 12.5 mg p.o. daily as needed. 6. Toradol 10 mg p.o. q.6 hours p.r.n. 7. Naproxen 500 mg p.o. b.i.d. p.r.n. 8. Trazodone 75 mg p.o. at bedtime. HISTORY OF PRESENT ILLNESS/HOSPITAL COURSE: Ms. Ramirez is a 39-year-old female with a history of migraines, who came into the emergency department because of migraine that has been intractable over the last 10 days. The patient recently stopped taking progesterone and estradiol hormone therapy to treat her endometriosis and has noticed an abrupt change in the severity of her headache. Headache has been intractable. She has tried all sorts of things outpatient to help relieve this headache with nothing working including her home elitriptan and Toradol shots. The patient was started on DHE by Dr. Sellers and Elsa, and recommendations to stop status migrainosus. This alleviated the patient's headache overnight. The patient had another headache in the morning of 09/12, was given a dose of DHE and this headache was not alleviated. The patient was discharged upon alleviation of her headache with home doses of DHE to take either IM or SC in case her headache were to return. The patient was agreeable to this discharge plan and follows closely with Dr. Emmanuel upon discharge for her chronic medical management. DISPOSITION: The patient is stable upon discharge home. DISCHARGE INSTRUCTIONS: 1. Location: Home. 2. Diet: Regular diet. 3. Activity: As tolerated. 4. Followup: Follow up with Dr. Emmanuel in one weeks' time. Job ID: [id number] MTDD
== END 2019-09-12 12:35 | disposition home or self-care (01) ==
LOC: INTOOBSV 17:56 → 2SW 17:56
PROVIDERS: ADMIT Family Medicine; ATTEND Family Medicine
DX: G43.911 Migraine, unspecified, intractable, with status migrainosus (principal); F41.9 Anxiety disorder, unspecified; F32.9 Major depressive disorder, single episode, unspecified; I45.81 Long QT syndrome; H81.09 Meniere's disease, unspecified ear; Z79.899 Other long term (current) drug therapy; Z88.5 Allergy status to narcotic agent; Z88.8 Allergy status to other drugs, medicaments and biological substances; Z91.041 Radiographic dye allergy status
CPT/HCPCS: 36415; 80053; 85025; 93005; 93010; 96374; 96375; 96376; G0378; J1110; J1200; J1885; J2270

== ENCOUNTER 2019-10-16 05:58 | Outpatient (CLI) | payer OTHER ==
[2019-10-16 12:10] LABS: Hemoglobin 13.3 g/dL (12.0-16.0); Mean Corpuscular HGB CONC 33.1 g/dL (32.0-36.0); Mean Corpuscular Hemoglobin 30.8 pg (27.0-31.0); Mean Corpuscular Volume 93.2 fL (78.0-98.0); Mean Platelet Volume 9.2 fL (7.4-10.4); Platelet Count 313 thou/uL (130-400); RBC Distribution Width 11.2 % (11.5-14.5); Red Blood Cell (RBC) Count 4.33 mill/uL (4.20-5.40); White Blood Cell (WBC) Count 8.8 thou/uL (4.8-10.8)
[2019-10-16 12:18] LABS: BHCG - Serum Negative (NEGATIVE); Pregs Control Background? CLEAR/WHITE (CLR/WHITE); Pregs Control Bar Appear? YES (CONTROL BAR)
[2019-10-16 12:41] LABS: ALT (SGPT) 26 U/L (8-55); AST (SGOT) 16 U/L (5-34); Albumin 4.1 g/dL (3.5-5.0); Alkaline Phosphatase 67 U/L (40-110); Anion Gap 11 mmol/L (10-20); BUN (Urea Nitrogen) 14 mg/dL (7.0-18.7); Bilirubin, Total 0.4 mg/dL (0.2-1.2); Calc. Creatinine Clearance 0 mL/min (70-130); Calcium 9.1 mg/dL (7.8-10.44); Carbon Dioxide 24 mmol/L (22-29); Chloride 107 mmol/L (98-107); Estimated GFR-MDRD 81; Globulin 2.8 g/dL (2.4-3.5); Glucose 79 mg/dL (70-105); Potassium 3.9 mmol/L (3.5-5.1); Protein, Total 6.9 g/dL (6.0-8.3); Sodium 138 mmol/L (136-145)
--- NOTE | 2019-10-16 17:10 | EKG ---
Test Reason : Blood Pressure : / mmHG Vent. Rate : 070 BPM Atrial Rate : 070 BPM P-R Int : 148 ms QRS Dur : 112 ms QT Int : 436 ms P-R-T Axes : 076 081 055 degrees QTc Int : 470 ms Normal sinus rhythm Incomplete right bundle branch block Cannot rule out Anterior infarct , age undetermined Abnormal ECG When compared with ECG of 11-SEP-2019 11:04, Nonspecific T wave abnormality no longer evident in Inferior leads Confirmed by DR. Kristen CAMPBELL (3) on 10/16/2019 5:09:29 PM Referred By: GONZALES Confirmed By:DR. Kristen CAMPBELL
== END 2019-10-16 05:59 | disposition home or self-care (01) ==
LOC: LABBT 05:58
PROVIDERS: ATTEND Student in an Organized Health Care Education/Training Program
DX: Z01.818 Encounter for other preprocedural examination (principal); N80.8 Other endometriosis
CPT/HCPCS: 80053; 84703; 85027; 86850; 86900; 86901; 93005; 93010

== ENCOUNTER 2019-10-17 10:58 | Day surgery (SDC) | payer OTHER ==
[2019-10-16 11:00] VITALS: BMI 24.7
[~2019-10-17 10:58] MED LIST changes: -Bupivacaine HCl 0.5%/Epinephrine 1:200,000/PF 30 ml Vial ONE; -CEFAZOLIN/Water 2 GM/20 ML SYRINGE ONE; -CeleCOXIB 100 MG CAP ONE; +Dexamethasone 20 MG/5 ML VIAL ONE; -Famotidine/PF 20 mg/2ml Vial ONE; -Fentanyl 100 MCG/2 ML VIAL ONE; -Gabapentin 300 MG CAP ONE; +Glycopyrrolate 0.2 MG/ML 5 ML SYRINGE ONE; -HYDROcodone/Acetaminophen 5/325 mg Tablet ONE; +Lidocaine 1% PF 5 ML VIAL ONE; -Meperidine HCl/PF 25 MG/ML VIAL ONE; -Metoprolol Tartrate 5 MG/5 ML VIAL ONE; -Midazolam HCl 2 mg/2 ml Vial ONE; +PROPOFOL 200 MG/20 ML VIAL ONE; +Rocuronium Bromide 10 MG/ML (10ML VIAL) ONE; +diphenhydrAMINE 50 MG/ML VIAL ONE
[2019-10-17] MEDS ORDERED: Gabapentin 300 MG CAP ONE (11:52)
[2019-10-17] MEDS ORDERED: CeleCOXIB 100 MG CAP ONE (11:52)
[2019-10-17] MEDS ORDERED: Famotidine/PF 20 mg/2ml Vial ONE (11:52)
[2019-10-17] MEDS ORDERED: HYDROmorphone 2 MG/ML VIAL ONE (13:27)
[2019-10-17] MEDS ORDERED: Bupivacaine PF 0.5% 30 ML VIAL ONE (13:32)
[2019-10-17] MEDS ORDERED: Morphine 4 MG/ML VIAL SLOW IVP PRN (15:43)
[2019-10-17] MEDS ORDERED: Zolpidem Tartrate 5 MG TAB PO PRN (15:43)
[2019-10-17] MEDS ORDERED: HYDROcodone/Acetaminophen 5/325 mg Tablet PO PRN ×2 (15:43)
[2019-10-17] MEDS ORDERED: Bisacodyl 10 MG SUPP PR PRN (15:43)
[2019-10-17] MEDS ORDERED: diphenhydrAMINE 25 MG CAP PO PRN (15:43)
[2019-10-17] MEDS ORDERED: Simethicone Chewable 80 MG TAB PO PRN (15:43)
[2019-10-17] MEDS ORDERED: Ropivacaine 0.2% 550 ML 750 ML NERVE BLCK SCH (15:45)
[2019-10-17] MEDS ORDERED: Dihydroergotamine Mesylate 1 MG/ML AMP IM PRN (15:47)
[2019-10-17] MEDS ORDERED: Non-Formulary Item 1 EACH (Hydrochlorothiazide [Hydrochlorothiazide] 12.5 MG) PO SCH (16:00)
[2019-10-17] MEDS ORDERED: PACU-Morphine 4MG/ML VIAL SLOW IVP PRN (16:09)
[2019-10-17] MEDS ORDERED: Morphine Sulfate 2 MG/ML SYRINGE SLOW IVP PRN (16:09)
[2019-10-17] MEDS ORDERED: Promethazine HCl 25 MG/ML VIAL IM PRN (16:09)
[2019-10-17] MEDS ORDERED: HYDROmorphone 2 MG/ML VIAL SLOW IVP PRN (16:09)
[2019-10-17] MEDS ORDERED: Ropivacaine HCl/PF 750 ML in Premix Bag 1 BAG NERVE BLCK SCH (16:15)
[2019-10-17] MEDS ORDERED: Scopolamine 1.5 mg/72 hour Patch TD SCH ×2 (17:00→21:00)
[2019-10-17] MEDS ORDERED: Ketorolac Tromethamine 30 MG/ML VIAL IVP SCH (18:00)
[2019-10-17] MEDS: Sodium Chloride 0.9% 1,000 ML IV SCH ×2 (19:57→23:54)
[2019-10-17] MEDS: Ketorolac Tromethamine 30 MG/ML VIAL IVP SCH (20:33)
[2019-10-17] MEDS ORDERED: traZODone HCl 50 MG TAB PO SCH (21:00)
[2019-10-17] MEDS: Docusate Calcium (SURFAK) 240 MG CAP PO SCH (21:00)
[2019-10-18] MEDS: Ketorolac Tromethamine 30 MG/ML VIAL IVP SCH (02:35)
[2019-10-18] MEDS: Sodium Chloride 0.9% 1,000 ML IV SCH (03:44)
[2019-10-18 05:54] LABS: Hemoglobin 12.9 g/dL (12.0-16.0); Mean Corpuscular HGB CONC 31.3 g/dL (32.0-36.0); Mean Corpuscular Hemoglobin 29.2 pg (27.0-31.0); Mean Corpuscular Volume 93.5 fL (78.0-98.0); Mean Platelet Volume 10.7 fL (7.4-10.4); Platelet Count 204 thou/uL (130-400); RBC Distribution Width 11.1 % (11.5-14.5); White Blood Cell (WBC) Count 8.8 thou/uL (4.8-10.8)
[2019-10-18 06:14] LABS: Anion Gap 13 mmol/L (10-20); BUN (Urea Nitrogen) 10 mg/dL (7.0-18.7); Calc. Creatinine Clearance 116 mL/min (70-130); Calcium 8.9 mg/dL (7.8-10.44); Carbon Dioxide 21 mmol/L (22-29); Chloride 105 mmol/L (98-107); Estimated GFR-MDRD Greater than 90; Glucose 117 mg/dL (70-105); Sodium 134 mmol/L (136-145)
[2019-10-18] MEDS ORDERED: Estradiol 0.1mg/24 Hour Patch (Weekly) TD SCH (09:00)
[2019-10-18] MEDS ORDERED: DULoxetine 30 MG CAP PO SCH (09:00)
[2019-10-18] MEDS ORDERED: Potassium Chloride 8 MEQ TAB PO SCH (09:00)
[2019-10-18] MEDS ORDERED: FLU VACC QS2019-20(6MOS UP)/PF 60 MCG/0.5 ML SYRINGE IM ONE (09:00)
[2019-10-18] MEDS ORDERED: FLUoxetine HCl 20 MG CAP PO SCH (09:00)
[2019-10-18] MEDS: Docusate Calcium (SURFAK) 240 MG CAP PO SCH (09:25)
--- NOTE | 2019-10-18 10:11 | PDOC.EVN ---
Event Note - Event Note Event Note: POD1 S: No complaints, prev had migraine BEAL relieved with home medication. Pain controlled, no N/V, chelsie po, voiding without diff. O: VSSAF NAD RRR CTAB S/appttp/Bs +/ND No e/c/c Hgb 12.9 BMP wnl A) POD1 s/p RATLH BSO P) Doing well, met all milestones. Pain controlled. DC with ibuprofen norco and estradiol patch. FU [address] wk[address] Path pending.
[2019-10-18] MEDS ORDERED: Ibuprofen 800 MG TAB PO SCH (11:00)
--- NOTE | 2019-10-18 15:11 | OP ---
DATE OF PROCEDURE: 10/17/2019 PREOPERATIVE DIAGNOSES: 1. Pelvic pain. 2. Endometriosis. 3. Uterine fibroids. POSTOPERATIVE DIAGNOSES: 1. Pelvic pain. 2. Endometriosis. 3. Uterine fibroids. PROCEDURE PERFORMED: Robotic-assisted total laparoscopic hysterectomy, bilateral salpingo-oophorectomy. ANESTHESIA: General endotracheal. JEWELRY ENAMELER: Ernestine Rogers PA-C ESTIMATED BLOOD LOSS: 50 mL. COMPLICATIONS: None. DRAINS: Melendrez catheter. FINDINGS: Normal appearing vaginal mucosa and cervix. Uterus sounded to 7 cm. The uterus had multiple subserosal fibroids in the range of 3 to 4 cm. The tubes appeared edematous bilaterally. The ovaries were normal appearing. There were several scattered endometriotic implants in the pelvis. The appendix was normal appearing as well as the upper abdomen. DESCRIPTION OF PROCEDURE: The patient was taken to the operating room, where general anesthesia was obtained without difficulty. The patient was prepped and draped in a sterile fashion in the dorsal lithotomy position. A Melendrez catheter was placed in the bladder. A speculum was placed in the vagina. The anterior lip of the cervix was grasped with a single-tooth tenaculum. The cervix was then dilated with [employer] dilators and then sounded to 7 cm. The BEN manipulator was assembled with a 6 cm tip and a 3.5 cm colpotomizer ring. The EBN manipulator was inserted into the uterus and colpotomizer ring advanced to fit snugly around the cervix and instruments removed out of the vagina. The patient's legs were placed in low lithotomy. Attention was turned to the abdomen. 0.5% Marcaine with epinephrine was infiltrated into the umbilicus and a 12 mm skin incision was made in the umbilicus. The Veress needle was passed into the abdomen noting an opening pressure of 3 mmHg. Pneumoperitoneum was obtained. The Veress needle was removed. The 12 mm trocar was introduced into the abdomen and confirmed placement with robotic camera. Steep Trendelenburg was obtained. Right and left lower quadrant 8 mm robotic trocars were placed under direct visualization after infiltrating with anesthetic. A right upper quadrant 11 mm surgical first assistant port was also placed under direct visualization after infiltrating with anesthetic. The robot was then docked. The right robotic arm contained monopolar scissors. Left robotic arm contained a fenestrated bipolar. The surgeon console took control. The left fallopian tube was grasped and elevated. The ureter was noted across the pelvic brim medially. The infundibulopelvic ligament was clamped just underneath the ovary and fenestrated was used to cauterize x2. This was then incised and sequential cautery followed by incision was taken down to the round ligament, where the round ligament was clamped in the midportion, cauterized and then incised. The anterior leaf of the broad ligament was then incised down to the level of the bladder flap as well as the posterior leaf of the broad ligament. The retroperitoneum was dissected off the uterine vessels in order to allow the ureter to fall away. The ureter was identified also in the pelvic sidewall laterally. The bladder was then backfilled to highlight the limitations of the bladder. The vesicouterine peritoneum was layered out, undermining with the scissors, followed by incision in order to ensure no incidental cystotomy. Attention was then turned to the right side, where the right fallopian tube was grasped and elevated. The ureter was noted across the pelvic brim. The ovarian pedicle was then clamped across underneath the ovary and cauterized x2 with the fenestrated and incised with the scissors and then sequentially cauterized and incised down to the round ligament and the medial portion that was incised after cautery. The posterior leaf of the broad ligament was incised with the scissors, undermining and bluntly dissecting the retroperitoneum with the fenestrated pushing and spreading. This was taken to the uterosacral ligament. The ureter was noted in the pelvic sidewall laterally. The anterior leaf of the broad ligament was also incised and the vessels were skeletonized. Further bladder flap was created incising on clear areas of peritoneum and the bladder was again backfilled to ensure where the bladder was located. Once the peritoneum had been taken down, the adventitia was incised on the pubocervical fascia and blunt dissection was taken with the back end of the scissors to this area to where the bladder would be taken down well below the level of the colpotomizer ring. The uterine vessels were then cauterized bilaterally. The colpotomy was performed posteriorly and then anteriorly followed by the lateral apices finally ensuring hemostasis of the vascular pedicles. Once completely transected, the uterus was placed into the vagina. The vaginal cuff was irrigated and hemostasis was achieved. The scissors were traded out for the needle highway truck driver. The vaginal cuff was then closed with a 2-0 barbed STRATAFIX suture in a running fashion and then ran back for a second layer with excellent closure incorporating vaginal mucosa and posterior peritoneum in each bite. The cuff was then again irrigated and low pressure check was performed. Hemostasis was noted to be excellent. The needle had been removed out of the abdomen. The ovarian pedicles were also hemostatic. The bladder was again backfilled and no extravasation of saline occurred and the ureters were identified in the sidewall peristalsing. All instruments were then removed out of the abdomen. The robot was undocked. The pneumoperitoneum was released. The fascia of the umbilical port was closed with 0 Vicryl in a [id number] fashion. The skin was closed with a 4-0 Monocryl in a subcuticular fashion. Dermabond was applied. The vaginal cuff was checked and noted to be hemostatic with excellent closure. All instruments and specimen were removed out of the vagina. The patient tolerated the procedure well. Sponge, lap, and needle counts were correct x2. The patient was taken to recovery room in stable condition. The patient received Ancef 2 g prior to the procedure. Job ID: [id number]
[2019-10-18 15:21] VITALS: BP 119/80; TEMP 98.5
[2019-10-19] MEDS ORDERED: Potassium Chloride 8 MEQ TAB PO SCH (09:00)
--- NOTE | 2019-10-19 16:37 | EKG ---
Test Reason : STAT Blood Pressure : / mmHG Vent. Rate : 077 BPM Atrial Rate : 077 BPM P-R Int : 154 ms QRS Dur : 124 ms QT Int : 414 ms P-R-T Axes : 046 036 014 degrees QTc Int : 468 ms Normal sinus rhythm RSR' or QR pattern in V1 suggests right ventricular conduction delay Nonspecific T wave abnormality Abnormal ECG When compared with ECG of 16-OCT-2019 11:34, Nonspecific T wave abnormality now evident in Inferior leads Confirmed by DR. Kristen CAMPBELL ([id number]) on 10/19/2019 4:36:46 PM Referred By: GONZALES Confirmed By:DR. Kristen CAMPBELL
== END 2019-10-18 15:45 | disposition home or self-care (01) ==
LOC: SDC 10:58 → SURG A 17:49 → SDC 10-18 15:45
PROVIDERS: ATTEND Student in an Organized Health Care Education/Training Program
PROC: 0UT24ZZ Resection of Bilateral Ovaries, Percutaneous Endoscopic Approach (ICD-10-PCS; principal; 2019-10-18)
PROC: 0UT74ZZ Resection of Bilateral Fallopian Tubes, Percutaneous Endoscopic Approach (ICD-10-PCS; principal; 2019-10-18)
PROC: 0UT94ZZ Resection of Uterus, Percutaneous Endoscopic Approach (ICD-10-PCS; principal; 2019-10-18)
DX: D25.2 Subserosal leiomyoma of uterus (principal); N80.3 Endometriosis of pelvic peritoneum; N83.201 Unspecified ovarian cyst, right side; N83.202 Unspecified ovarian cyst, left side; N72 Inflammatory disease of cervix uteri; N83.8 Other noninflammatory disorders of ovary, fallopian tube and broad ligament; F41.9 Anxiety disorder, unspecified; F32.9 Major depressive disorder, single episode, unspecified; Z88.5 Allergy status to narcotic agent; Z88.8 Allergy status to other drugs, medicaments and biological substances; Z91.041 Radiographic dye allergy status; Z79.899 Other long term (current) drug therapy; Z91.048 Other nonmedicinal substance allergy status
CPT/HCPCS: 36415; 80048; 85027; 88307; 93005; 93010; J0690; J1100; J1110; J1170; J1200; J1885; J2001; J2704; Q0163; S0020; S0028

== ENCOUNTER 2021-02-26 06:25 | Day surgery (SDC) | payer OTHER ==
[2021-02-25 10:14] VITALS: BMI 27.3
[2021-02-26] MEDS ORDERED: Lidocaine 1% w/Epinephrine 1:100K 20 ML VIAL ONE (06:46)
[2021-02-26] MEDS ORDERED: AFRIN NASAL MIST 15 ML BOT ONE ×2 (06:46→07:23)
[2021-02-26] MEDS ORDERED: Bacitracin Zinc Ointment 30 gm TUBE ONE (06:46)
[2021-02-26] MEDS ORDERED: EPINEPHrine 1 MG/ML AMP ONE (06:46)
[2021-02-26] MEDS ORDERED: Morphine 4 MG/ML VIAL ONE ×5 (08:16→10:06)
[2021-02-26] MEDS ORDERED: Famotidine/PF 20 mg/2ml Vial ONE (08:16)
[2021-02-26] MEDS ORDERED: Ondansetron PF 4 MG/2 ML Vial ONE (08:25)
[2021-02-26] MEDS ORDERED: Lidocaine 1% PF 5 ML VIAL ONE (08:25)
[2021-02-26] MEDS ORDERED: PROPOFOL 200 MG/20 ML VIAL ONE (08:25)
[2021-02-26] MEDS ORDERED: Dexamethasone 20 MG/5 ML VIAL ONE (08:25)
[2021-02-26] MEDS ORDERED: Ketorolac Tromethamine 30 MG/ML VIAL ONE (09:07)
[2021-02-26] MEDS ORDERED: HYDROcodone/Acetaminophen 5/325 mg Tablet ONE (10:59)
== END 2021-02-26 12:00 | disposition home or self-care (01) ==
LOC: SDC 06:25
PROVIDERS: ATTEND Otolaryngology Plastic Surgery within the Head & Neck
PROC: 09BL7ZZ Excision of Nasal Turbinate, Via Natural or Artificial Opening (ICD-10-PCS; principal; 2021-02-26)
PROC: 09SM4ZZ Reposition Nasal Septum, Percutaneous Endoscopic Approach (ICD-10-PCS; principal; 2021-02-26)
PROC: 0NSBXZZ Reposition Nasal Bone, External Approach (ICD-10-PCS; principal; 2021-02-26)
DX: J34.2 Deviated nasal septum (principal); J34.3 Hypertrophy of nasal turbinates; S02.2XXA Fracture of nasal bones, initial encounter for closed fracture; Z79.899 Other long term (current) drug therapy; Z88.8 Allergy status to other drugs, medicaments and biological substances; Z91.041 Radiographic dye allergy status; Z91.048 Other nonmedicinal substance allergy status
CPT/HCPCS: 85014; 93005; 93010; J0171; J1100; J1885; J2270; J2405; J2704; S0028

== ENCOUNTER 2022-08-26 14:35 | Outpatient (CLI) | payer OTHER | END 2022-08-26 14:36 | disposition home or self-care (01) | LOC: BICRAD 14:35 | PROVIDERS: ATTEND Dentist Oral and Maxillofacial Surgery | DX: Z97.2 Presence of dental prosthetic device (complete) (partial) (principal) | CPT/HCPCS: 71046 ==

== ENCOUNTER 2023-02-15 13:46 | Outpatient (CLI) | payer OTHER | END 2023-02-15 13:47 | disposition home or self-care (01) | LOC: BICRAD 13:46 | PROVIDERS: ATTEND Nurse Practitioner Family | DX: S09.92XA Unspecified injury of nose, initial encounter (principal) | CPT/HCPCS: 70160 ==

== ENCOUNTER 2023-10-21 14:08 | Outpatient (CLI) | payer BC, OTHER | END 2023-10-21 14:09 | disposition home or self-care (01) | LOC: SCSRAD 14:08 | PROVIDERS: ATTEND Nurse Practitioner Family | DX: R06.02 Shortness of breath (principal) | CPT/HCPCS: 71046 ==

== ENCOUNTER 2024-04-14 16:13 | Inpatient (IN) | payer BC, SELFPAY ==
[2024-04-14] MEDS ORDERED: methylPREDNISolone Sod Succ/PF 125 MG/2 ML VIAL ONE (18:44)
[2024-04-14] MEDS ORDERED: diphenhydrAMINE 50 MG/ML VIAL ONE (18:44)
[2024-04-14] MEDS ORDERED: Famotidine/PF 20 mg/2ml Vial ONE (18:45)
[2024-04-14 19:11] LABS: ALT (SGPT) 55 U/L (8-55); AST (SGOT) 29 U/L (5-34); Albumin 3.5 g/dL (3.5-5.0); Alkaline Phosphatase 91 U/L (40-110); Anion Gap 14 mmol/L (10-20); BUN (Urea Nitrogen) 11 mg/dL (7.0-18.7); Bilirubin, Total 0.6 mg/dL (0.2-1.2); Calc. Creatinine Clearance 0 mL/min (70-130); Calcium 9.1 mg/dL (7.8-10.44); Carbon Dioxide 21 mmol/L (22-29); Chloride 98 mmol/L (98-107); Estimated GFR 103; Globulin 3.5 g/dL (2.4-3.5); Glucose 90 mg/dL (70-105); Potassium 3.2 mmol/L (3.5-5.1); Sodium 130 mmol/L (136-145)
[2024-04-14 19:16] LABS: Troponin I Less than 0.010 ng/mL (< 0.028)
[2024-04-14 19:27] LABS: #Basophils 0.03 10x3/uL (0.0-0.2); %Basophils 0.3 % (0.0-1.0); %Eosinophils 0.3 % (0.0-10.0); %Lymphocytes 7.7 % (21.0-51.0); %Monocytes 7.9 % (0.0-10.0); %Neutrophils 83.5 % (42.0-75.0); Hematocrit 40.1 % (36.0-47.0); Hemoglobin 13.8 g/dL (12.0-16.0); Mean Corpuscular HGB CONC 34.4 g/dL (32.0-36.0); Mean Corpuscular Hemoglobin 29.5 pg (27.0-31.0); Mean Corpuscular Volume 85.7 fL (78.0-98.0); Mean Platelet Volume 10.2 fL (7.4-10.4); Platelet Count 325 10x3/uL (130-400); RBC Distribution Width 12.3 % (11.5-14.5); Red Blood Cell (RBC) Count 4.68 mill/uL (4.20-5.40)
[2024-04-14] MEDS ORDERED: Acetaminophen/Codeine 30-300mg Tablet ONE (20:25)
[2024-04-14] MEDS ORDERED: Potassium Chloride 20 MEQ in Premix 1 BAG IVPB ONE (22:22)
[2024-04-14 23:07] LABS: Troponin I Less than 0.010 ng/mL (< 0.028)
[2024-04-15 00:01] VITALS: BMI 25.0
[2024-04-15] MEDS ORDERED: Albuterol 200 PUFF (6.7GM INHALER) INH PRN (00:05)
[2024-04-15] MEDS: Sodium Chloride 0.9% 1,000 ML IV SCH (00:24)
[2024-04-15] MEDS: Potassium Chloride 20 MEQ in Premix 1 BAG IVPB SCH (00:25)
[2024-04-15] MEDS: Lidocaine 4% Patch TD SCH (00:26)
[2024-04-15] MEDS: guaiFENesin 200 MG TAB PO SCH (00:29)
[2024-04-15] MEDS: diphenhydrAMINE 25 MG CAP PO PRN (00:31)
[2024-04-15] MEDS: Ketorolac Tromethamine 10 MG TAB PO PRN (00:39)
[2024-04-15] MEDS: Dextromethorphan Polistirex 60 MG/10 ML ER.12 HR UDCUP PO SCH (01:17)
[2024-04-15] MEDS ORDERED: RIMEGEPANT SULFATE 75 MG SL PRN (06:37)
[2024-04-15] MEDS ORDERED: Ipratropium/Albuterol 3 ML NEB NEB PRN (07:01)
[2024-04-15 07:55] LABS: #Basophils Less than 0.03 10x3/uL (0.0-0.2); #Eosinphils Less than 0.03 10x3/uL (0.0-0.7); %Basophils 0.2 % (0.0-1.0); %Lymphocytes 10.7 % (21.0-51.0); %Monocytes 1.9 % (0.0-10.0); %Neutrophils 86.7 % (42.0-75.0); Hematocrit 39.7 % (36.0-47.0); Mean Corpuscular HGB CONC 32.7 g/dL (32.0-36.0); Mean Corpuscular Hemoglobin 28.8 pg (27.0-31.0); Mean Platelet Volume 10.3 fL (7.4-10.4); Platelet Count 299 10x3/uL (130-400); RBC Distribution Width 12.4 % (11.5-14.5); Red Blood Cell (RBC) Count 4.51 mill/uL (4.20-5.40)
[2024-04-15 08:23] LABS: Influenza A by NAA Not Detected (NotDetected); Influenza B by NAA Not Detected (NotDetected); SARS-CoV-2 NAA Rapid Test DETECTED (NotDetected)
[2024-04-15] MEDS: Enoxaparin 40 MG (0.4 mL) SYRINGE SC SCH (08:51)
[2024-04-15 09:28] VITALS: BP 110/74; TEMP 97.8
[2024-04-15] MEDS: Potassium Chloride 20 MEQ TAB PO SCH (10:20)
[2024-04-15 11:27] LABS: Chloride 110 mmol/L (98-107); Sodium 139 mmol/L (136-145)
[2024-04-15 11:28] LABS: Anion Gap 11 mmol/L (10-20); BUN (Urea Nitrogen) 9 mg/dL (7.0-18.7); Calc. Creatinine Clearance 112 mL/min (70-130); Calcium 9.1 mg/dL (7.6-10.4); Carbon Dioxide 22 mmol/L (22-29); Estimated GFR 110; Glucose 120 mg/dL (70-105)
[2024-04-15] MEDS ORDERED: Transdermal Patch Removal TOP SCH (12:00)
[2024-04-15] MEDS ORDERED: Dextromethorphan Polistirex 60 MG/10 ML ER.12 HR UDCUP PO SCH ×2 (12:00→21:00)
[2024-04-15] MEDS ORDERED: traZODone HCl 50 MG TAB PO SCH (21:00)
== END 2024-04-15 11:00 | disposition home or self-care (01) | DRG 177 ==
LOC: ERS 16:13 → T4-B 22:09
PROVIDERS: ADMIT Student in an Organized Health Care Education/Training Program; ATTEND Student in an Organized Health Care Education/Training Program
PROC: 8E0ZXY6 Isolation (ICD-10-PCS; principal; 2024-04-14)
DX: U07.1 COVID-19 (principal); J12.82 Pneumonia due to coronavirus disease 2019; J98.11 Atelectasis; E87.1 Hypo-osmolality and hyponatremia; J98.09 Other diseases of bronchus, not elsewhere classified; E87.6 Hypokalemia; R11.2 Nausea with vomiting, unspecified; I45.10 Unspecified right bundle-branch block; F32.A Depression, unspecified; F41.9 Anxiety disorder, unspecified; R94.31 Abnormal electrocardiogram [ECG] [EKG]; Z90.710 Acquired absence of both cervix and uterus; Z88.8 Allergy status to other drugs, medicaments and biological substances; Z79.899 Other long term (current) drug therapy; Z80.3 Family history of malignant neoplasm of breast; Z80.0 Family history of malignant neoplasm of digestive organs
CPT/HCPCS: 36415; 71045; 71260; 80048; 80053; 83605; 84145; 84484; 85025; 87040; 93005; J1200; J1650; J2930; J3480; J7050; S0028